=== PATIENT | male | born 1965 | race Hispanic/Latino ===

== ENCOUNTER 2016-09-25 19:00 | Emergency (ER) | payer SELFPAY ==
[2016-09-25 19:01] VITALS: BMI 38.5
[2016-09-25 19:40] VITALS: TEMP 99
[2016-09-25] MEDS ORDERED: Naproxen 550 mg Tab PO STA (20:02)
[2016-09-25] MEDS ORDERED: Lidocaine 2% Jelly (Uro-Jet) TOP ONE (20:02)
--- NOTE | 2016-09-25 20:06 | C.PDOC ---
History Of Present Illness 50 y/o male pmhx prostate cancer presents to the ED with complains of rectal pain x1 week. Pt states has been using preparation-H with improvement however he had a bowel movement today that made it worse. Pt states pain initially onset with BM. History of constipation, takes metamucil, drinks lots of water and has a high fiber diet. Pt denies bloody stools, abdominal pain, fever or any other complaints. Time Seen by Provider: 09/25/16 19:47 Chief Complaint (Nursing): Abnormal Skin Integrity History Per: Patient History/Exam Limitations: no limitations Onset/Duration Of Symptoms: Days Current Symptoms Are (Timing): Still Present Quality Of Symptoms: Painful Severity: Moderate Recent travel outside of the [place]: No Past Medical History Reviewed: Historical Data, Nursing Documentation, Vital Signs Vital Signs: Last Vital Signs Temp 99.0 F 09/25/16 19:37 Pulse 84 09/25/16 23:48 Resp 20 09/25/16 23:48 BP 142/78 09/25/16 23:48 Pulse Ox 100 09/26/16 02:11 - Medical History PMH: HTN, Kidney Stones, Sleep Apnea - simpleFLOORS Procedures URETERAL CATHETERIZATION (12/13/13) Family History: States: Unknown Family Hx - Social History Hx Tobacco Use: No Hx Alcohol Use: No Hx Substance Use: No - Immunization History Hx Tetanus Toxoid Vaccination: No Hx Influenza Vaccination: No Hx Pneumococcal Vaccination: No Review Of Systems Except As Marked, All Systems Reviewed And Found Negative. Constitutional: Negative for: Fever, Chills Gastrointestinal: Positive for: Rectal Pain. Negative for: Vomiting, Abdominal Pain, Hematochezia Physical Exam - Physical Exam Appears: Non-toxic, No Acute Distress, Other (obese) Skin: Warm, Dry, No Rash Head: Atraumatic, Normacephalic Eye(s): bilateral: Normal Inspection, EOMI Nose: Normal Oral Mucosa: Moist Neck: Normal ROM, Supple Chest: Symmetrical Cardiovascular: Rhythm Regular, No Murmur Respiratory: Normal Breath Sounds, No Rales, No Rhonchi, No Wheezing Gastrointestinal/Abdominal: Normal Exam, Soft, No Tenderness Rectal: Hemorrhoids (soft nonthrombosed hemmorhoids at 9 o'clock) Back: No CVA Tenderness, No Vertebral Tenderness Extremity: Bilateral: Atraumatic Neurological/Psych: Oriented x3, Normal Speech ED Course And Treatment - Laboratory Results Result Diagrams: 09/25/16 20:37 09/25/16 20:37 O2 Sat by Pulse Oximetry: 100 (RA) Pulse Ox Interpretation: Normal - CT Scan/US CT abd/pel w/ IV contrast Other Rad Studies (CT/US): Read By Radiologist, Radiology Report Reviewed CT/US Interpretation: Addendum created by Lauryn Wood MD on 09/25/2016 11:21 PM Eastern Time ([place] & [place]). Prominence of rectal soft tissue. Minimal stranding in the region of the perineum. No perirectal. abscess noted. Correlate clinically. Prior study remains unavailable for comparison at time of preliminary report. Initial Report created on 09/25/2016 10:49 PM Eastern Time ([place] & [place]). EXAM: CT Abdomen and Pelvis With Intravenous Contrast. CLINICAL HISTORY: 50 years old, male; Pain; Abdominal pain; Flank; Other: Hemmorhoids; Additional info: Abd pain. TECHNIQUE: Axial computed tomography images of the abdomen and pelvis with intravenous contrast. This CT. exam was performed using one or more of the following dose reduction techniques: automated. exposure control, adjustment of the mA and/or kV according to patient size, and/or use of iterative. reconstruction technique. Coronal and sagittal reformatted images were created and reviewed. CONTRAST: 100 mL of omnipaque 350 administered intravenously. COMPARISON: No relevant prior studies available. FINDINGS: Atelectasis/scarring at the medial right lung base. Fatty infiltration of the liver. Splenomegaly. The pancreas and adrenal glands demonstrate no acute abnormalities. The kidneys are symmetric with no evidence of hydronephrosis. No obstructing renal calculus. The aorta is unremarkable. Minimal fat-containing umbilical hernia. Evaluation of bowel limited without enteric contrast. The. small and large bowel as visualized demonstrate no evidence of obstruction or clear focus of. inflammation. Colonic diverticula. Normal caliber appendix. No ascites. No free air. Bilateral inguinal hernias, left inguinal hernia contains segment of sigmoid colon. Right inguinal. hernia contains portion of the bladder. Increased adjacent stranding involving right inguinal hernia. Degenerative changes. IMPRESSION: Bilateral inguinal hernias, left inguinal hernia contains segment of sigmoid colon. Right inguinal. hernia contains portion of the bladder. Adjacent stranding involving right inguinal hernia. Correlate clinically. Progress Note: Abd/pel CT w/ IV contrast. Anaprox and IV fluids administered. Lidocaine gel applied. On re-evaluation, pain improved. Discussed prevention and signs of concern. Instructed to follow up with surgeon if symptoms persist. Disposition - Disposition Disposition: HOME/ ROUTINE Disposition Time: 20:03 Condition: STABLE Additional Instructions: Use warm sitz baths every 4 hours. Continue using metamucil and eating high fiber diet. You can use witch isaura if there is any itching. Return to ER if symptoms persist or worsen. Follow up with PMD in 1-2 days. Prescriptions: Docusate [Colace] 100 mg PO BID #14 cap Lidocaine 2% [Xylocaine 2%] 1 appl TP DAILY PRN #1 tube PRN Reason: Pain, Mild (1-3) Naproxen [Naprosyn] 1 tab PO BID PRN #20 tab PRN Reason: Pain Instructions: Hemorrhoids (ED) - Clinical Impression Clinical Impression: Hemorrhoids - PA / CHARGE HAND / Resident Statement MD/DO has reviewed & agrees with the documentation as recorded. - Scribe Statement The provider has reviewed the documentation as recorded by the Kartik Cruran All medical record entries made by the Kartik were at my direction and personally dictated by me. I have reviewed the chart and agree that the record accurately reflects my personal performance of the history, physical exam, medical decision making, and the department course for this patient. I have also personally directed, reviewed, and agree with the discharge instructions and disposition.
[2016-09-25] MEDS ORDERED: Lidocaine 2% Jelly (Uro-Jet) ONE (20:13)
[2016-09-25] MEDS ORDERED: Naproxen 550 mg Tab PO ONE (20:20)
[2016-09-25] MEDS ORDERED: Sodium Chloride 0.9% 1,000 ML IV ONE (20:27)
[2016-09-25 20:42] LABS: BASO # 0.1 K/uL (0.0-0.2); BASO % 0.8 % (0.0-2.0); EOS # 0.1 K/uL (0.0-0.7); EOS % 1.6 % (0.0-4.0); HEMATOCRIT 40.9 % (35.0-51.0); LYMPH # 1.9 K/uL (1.0-4.3); LYMPH % 22.2 % (20.0-40.0); MEAN CELL VOLUME 84.4 fL (80.0-94.0); MEAN CORPUSCULAR HEMOGLOBIN 28.3 pg (27.0-31.0); MEAN CORPUSCULAR HGB CONC 33.5 g/dL (33.0-37.0); MEAN PLATELET VOLUME 11.8 fL (7.2-11.7); MONO # 0.5 K/uL (0.0-0.8); MONO % 5.6 % (0.0-10.0); NRBC % 0.1 % (0.0-2.0); RED CELL DISTRIBUTION WIDTH 13.2 % (11.5-14.5); WHITE BLOOD COUNT 8.4 K/uL (4.8-10.8)
[2016-09-25 20:49] LABS: CHLORIDE 104 mmol/L (98-107); POTASSIUM 3.8 mmol/L (3.6-5.2); SODIUM 143 mmol/L (132-148)
[2016-09-25 20:51] LABS: AST/SGOT 37 U/L (17-59); BILIRUBIN,TOTAL 0.9 mg/dL (0.2-1.3); CARBON DIOXIDE 26 mmol/L (22-30); GFR AFRICAN-AMERICAN > 60
[2016-09-25 20:52] LABS: ALB/GLOB RATIO 1.6 (1.0-2.1); ALKALINE PHOSPHATASE 67 U/L (38-126); ALT/SGPT 71 U/L (21-72); BLOOD UREA NITROGEN 19 mg/dL (9-20); CALCIUM 9.4 mg/dl (8.6-10.4); GLUCOSE,RANDOM 91 mg/dL (75-110)
[2016-09-25] MEDS ORDERED: Iohexol 350mg/ml 100 ML ONE (21:01)
[2016-09-25 23:49] VITALS: BP 142/78; PULSE 84; RESP 20
[2016-09-26 00:12] VITALS: O2SAT 100
--- NOTE | 2016-09-26 09:09 | CT ---
PROCEDURE: CT Abdomen and Pelvis with contrast HISTORY: abd pain COMPARISON: 12/13/2013 TECHNIQUE: Contrast dose: 100 mL Omnipaque 350 Radiation dose: Total exam DLP = 1368.94 mGy-cm. This CT exam was performed using one or more of the following dose reduction techniques: Automated exposure control, adjustment of the mA and/or kV according to patient size, and/or use of iterative reconstruction technique. FINDINGS: LOWER THORAX: Minimal linear scar/ atelectasis medial right lower lobe. LIVER: Diffusely diminished attenuation consistent with fatty infiltration. Normal size and contour. No mass. No biliary ductal dilatation. GALLBLADDER AND BILE DUCTS: Unremarkable. PANCREAS: Unremarkable. No gross lesion or ductal dilatation. SPLEEN: Unremarkable. ADRENALS: Unremarkable. No mass. KIDNEYS AND URETERS: Unremarkable. No hydronephrosis. No solid mass. VASCULATURE: Unremarkable. No aortic aneurysm. BOWEL: No bowel obstruction. Herniation of the descending/sigmoid colonic junction in to the left inguinal canal. APPENDIX: Normal appendix. PERITONEUM: Left inguinal hernia containing small portion of the descending/sigmoid colonic junction. Right inguinal hernia containing a portion of the urinary bladder. There is mild stranding of the herniated mesenteric fat about the urinary bladder, nonspecific. LYMPH NODES: Unremarkable. No enlarged lymph nodes. BLADDER: As above, right inguinal herniation of a portion of the urinary bladder. REPRODUCTIVE: Normal prostate BONES: No acute fracture. OTHER FINDINGS: None. IMPRESSION: Right inguinal hernia containing portion of the urinary bladder. Mild stranding of the herniated fat surrounding the urinary bladder, nonspecific. Left inguinal hernia containing small portion of the descending/ sigmoid colonic junction. Fatty infiltration of the liver. Preliminary interpretation of this examination was reported by [facility] at 10:49 p.m. on 09/25/2016. There is concurrence of this report with the preliminary interpretation.
== END 2016-09-26 00:04 | disposition home or self-care (01) ==
LOC: C.ER 19:00
DX: K64.9 Unspecified hemorrhoids (principal)
CPT/HCPCS: 74177; 80053; 85025; 96360; 99284; J7040; Q9967